=== PATIENT | female | born 1990 | race Caucasian/White ===

== ENCOUNTER 2019-09-19 19:52 | Emergency (ER) | payer OTHER ==
[~2019-09-19] VITALS: Ht 167.6 cm; Wt 65.9 kg
[2019-09-19] MEDS ORDERED: birth control (20:10)
[2019-09-19] MEDS ORDERED: NS 1,000 ML IV ONE (21:00)
[2019-09-19] MEDS ORDERED: ONDANSETRON 4MG/2ML VIAL IV ONE (21:00)
[2019-09-19] MEDS ORDERED: MORPHINE 4 MG/ML 1ML VIAL/SYRINGE (J2270) IV ONE (21:00)
[2019-09-19 21:08] LABS: MEAN CORPUSCULAR HEMOGLOBIN 29.7 pg (27.0-33.0); MEAN CORPUSCULAR HGB CONC 33.3 g/dl (32.0-36.5); MEAN CORPUSCULAR VOLUME 89.2 fl (80.0-96.0); PLATELET COUNT, AUTOMATED 325 10^3/uL (150-450); RED BLOOD COUNT 4.71 10^6/uL (4.00-5.40); WHITE BLOOD COUNT 12.2 10^3/uL (4.0-10.0)
[2019-09-19] MEDS ORDERED: ISOVUE-370 76% 100ML VIAL As Ordered ONE (21:13)
[2019-09-19 21:44] LABS: ALBUMIN 3.9 GM/DL (3.2-5.2); ALT/SGPT 25 U/L (12-78); BILIRUBIN,DIRECT < 0.1 MG/DL (0.0-0.2); BILIRUBIN,TOTAL 0.4 MG/DL (0.2-1.0); LIPASE 166 U/L (73-393); TOTAL PROTEIN 7.7 GM/DL (6.4-8.2)
[2019-09-19 21:47] LABS: ATYPICAL LYMPH 5 % (0-5); BASOPHILS 1 % (0-1); EOSINOPHILS 1 % (0-3); LYMPHOCYTES 35 % (16-44); MONOCYTES 7 % (0-5); NEUTROPHILS 51 % (28-66); PLATELET ESTIMATE NORMAL (NORMAL)
--- NOTE | 2019-09-19 21:49 | REPVR ---
PROCEDURE INFORMATION: Exam: CT Abdomen And Pelvis With Contrast Exam date and time: 09/19/2019 9:22 PM Age: 28 years old Clinical indication: Abdominal pain; Localized; Lower; Additional info: Lower abd pain, very tender, nv TECHNIQUE: Imaging protocol: Computed tomography of the abdomen and pelvis with intravenous contrast. Radiation optimization: All CT scans at this facility use at least one of these dose optimization techniques: automated exposure control; mA and/or kV adjustment per patient size (includes targeted exams where dose is matched to clinical indication); or iterative reconstruction. Contrast material: ISOVUE 370; Contrast volume: 100 ml; Contrast route: IV; COMPARISON: No relevant prior studies available. FINDINGS: Liver: Normal. No mass. Gallbladder and bile ducts: Normal. No calcified stones. No ductal dilation. Pancreas: Normal. No ductal dilation. Spleen: Normal. No splenomegaly. Adrenals: Normal. No mass. Kidneys and ureters: Normal. No hydronephrosis. Stomach and bowel: Mild intraluminal fluid and mucosal enhancement are noted in the small bowel. No wall thickening or other inflammatory changes. No bowel obstruction. The stomach and colon are unremarkable. Appendix: No evidence of appendicitis. Intraperitoneal space: Unremarkable. No free air. No significant fluid collection. Vasculature: Unremarkable. No abdominal aortic aneurysm. Lymph nodes: Unremarkable. No enlarged lymph nodes. Bladder: Unremarkable as visualized. Reproductive: Unremarkable as visualized. Bones/joints: Unremarkable. No acute fracture. Soft tissues: Unremarkable. IMPRESSION: 1. Mild mucosal enhancement and intraluminal fluid in the small bowel is nonspecific but may indicate a viral enteritis. No obstruction. 2. Normal appendix. Electronically signed by: Sandor Sandoval On 09/19/2019 21:49:00 PM
[2019-09-19] MEDS ORDERED: DICY1CAP8 PO (22:25)
[2019-09-19] MEDS ORDERED: ONDA4TAB6 PO (22:25)
[2019-09-19 22:38] VITALS: BP 130/67
== END 2019-09-19 22:40 | disposition home or self-care (01) ==
LOC: M ED 19:52
DX: R10.30 Lower abdominal pain, unspecified (principal); K52.9 Noninfective gastroenteritis and colitis, unspecified; F17.200 Nicotine dependence, unspecified, uncomplicated; Z79.82 Long term (current) use of aspirin; Z79.3 Long term (current) use of hormonal contraceptives; Z88.0 Allergy status to penicillin
CPT/HCPCS: 74177; 80047; 80076; 81001; 83690; 84702; 85025; 96361; 96374; 96375; 99284; J2270; J2405; Q9967

== ENCOUNTER 2019-10-07 19:02 | Emergency (ER) | payer OTHER ==
[~2019-10-07] VITALS: Ht 167.6 cm; Wt 66.4 kg
[~2019-10-07 19:02] MED LIST: DICY1CAP8 PO; ONDA4TAB6 PO; birth control
[2019-10-07] MEDS ORDERED: NS 1,000 ML IV SCH (19:23)
[2019-10-07] MEDS ORDERED: ASPIRIN 81 MG CHEW TABLET PO ONE (19:30)
[2019-10-07 19:51] LABS: BASO # 0.1 10^3/uL (0.0-0.2); BASO % 0.5 % (0.0-1.0); EOS # 0.2 10^3/uL (0.0-0.5); EOS % 2.3 % (0.0-3.0); HEMATOCRIT 39.8 % (36.0-47.0); HEMOGLOBIN 13.2 g/dl (12.0-15.5); LYMPH # 3.8 10^3/uL (1.5-5.0); LYMPH % 38.1 % (24.0-44.0); MEAN CORPUSCULAR HEMOGLOBIN 29.8 pg (27.0-33.0); MEAN CORPUSCULAR HGB CONC 33.2 g/dl (32.0-36.5); MEAN CORPUSCULAR VOLUME 89.8 fl (80.0-96.0); MONO # 0.8 10^3/uL (0.0-0.8); MONO % 8.3 % (0.0-5.0); NEUTROPHILS % 50.6 % (36.0-66.0); PLATELET COUNT, AUTOMATED 251 10^3/uL (150-450); RED BLOOD COUNT 4.43 10^6/uL (4.00-5.40); WHITE BLOOD COUNT 9.9 10^3/uL (4.0-10.0)
[2019-10-07 20:02] LABS: INR 1.07; PROTHROMBIN TIME 13.6 SECONDS (11.8-14.0)
[2019-10-07 20:17] LABS: ALBUMIN 3.7 GM/DL (3.2-5.2); ALT/SGPT 28 U/L (12-78); BILIRUBIN,DIRECT 0.1 MG/DL (0.0-0.2); BILIRUBIN,TOTAL 0.3 MG/DL (0.2-1.0); BLOOD UREA NITROGEN 13 MG/DL (7-18); CALCIUM LEVEL 8.9 MG/DL (8.5-10.1); CARBON DIOXIDE LEVEL 26 MEQ/L (21-32); CHLORIDE LEVEL 106 MEQ/L (98-107); CK-MB VALUE MASS < 1.0 NG/ML (<3.6); CPK CREATINE PHOSPHOKINASE 69 U/L (26-192); CREATININE FOR GFR 0.98 MG/DL (0.55-1.30); ETHYL ALCOHOL (ETHANOL) < 0.003 % (0.000-0.010); GLOMERULAR FILTRATION RATE > 60.0 (>60); GLUCOSE, FASTING 89 MG/DL (70-100); LIPASE 111 U/L (73-393); MB/CK RELATIVE INDEX 1.45 (< OR =4); POTASSIUM SERUM 4.1 MEQ/L (3.5-5.1); SODIUM LEVEL 140 MEQ/L (136-145); TOTAL PROTEIN 7.2 GM/DL (6.4-8.2); TROPONIN I < 0.02 NG/ML (< 0.10)
[2019-10-07 20:24] LABS: AMPHETAMINES LEVEL URINE NEGATIVE (NEGATIVE); BARBITURATES URINE NEGATIVE (NEGATIVE); BENZODIAZEPINES URINE NEGATIVE (NEGATIVE); CANNABINOIDS URINE NEGATIVE (NEGATIVE); COCAINE METABOLITE URINE NEGATIVE (NEGATIVE); METHADONE URINE NEGATIVE (NEGATIVE); OPIATES URINE NEGATIVE (NEGATIVE); PHENCYCLIDINE URINE NEGATIVE (NEGATIVE)
[2019-10-07 20:28] LABS: HCG, SERUM QUALITATIVE NEGATIVE (NEGATIVE)
[2019-10-07 20:30] VITALS: BP 120/58
[2019-10-07] MEDS ORDERED: ASPI81TA85 PO (20:32)
--- NOTE | 2019-10-07 20:47 | ECGEPIP ---
[facility] - ED Test Date: 2019-10-07 Pat Name: ENRRIQUE BARGER Department: Room: - Gender: Female Director Financial Services: KENNEDY : 1990 Requested By: ALLIE RAE Order Number: [id number] Reading MD: Shadi Cabral Measurements Intervals [place] Rate: 67 P: 52 [place]: 201 QRS: 85 QRSD: 100 T: 59 QT: 376 QTc: 399 Interpretive Statements SINUS RHYTHM WITH OCCASIONAL SUPRAVENTRICULAR PREMATURE COMPLEXES NSTTW ABNORMALITIES NO PRIORS FOR COMPARISON Electronically Signed on 10-07-2019 20:47:42 EDT by Shadi Cabral
== END 2019-10-07 20:44 | disposition home or self-care (01) ==
LOC: M ED 19:02
DX: R07.89 Other chest pain (principal); Z72.0 Tobacco use; Z79.82 Long term (current) use of aspirin; Z79.3 Long term (current) use of hormonal contraceptives; Z88.0 Allergy status to penicillin
CPT/HCPCS: 80048; 80076; 80307; 82550; 82553; 83690; 84484; 84703; 85025; 85610; 93005; 93041; 94760; 96360; 99285; G0480

== ENCOUNTER 2020-03-26 02:24 | Emergency (ER) | payer OTHER ==
[~2020-03-26 02:24] MED LIST changes: +ASPI81TA86 PO
[2020-03-26 02:59] LABS: BASO # 0.1 10^3/uL (0.0-0.2); BASO % 0.5 % (0.0-1.0); EOS # 0.2 10^3/uL (0.0-0.5); EOS % 2.2 % (0.0-3.0); HEMATOCRIT 40.5 % (36.0-47.0); HEMOGLOBIN 13.1 g/dl (12.0-15.5); LYMPH # 3.2 10^3/uL (1.5-5.0); LYMPH % 34.4 % (24.0-44.0); MEAN CORPUSCULAR HGB CONC 32.3 g/dl (32.0-36.5); MEAN CORPUSCULAR VOLUME 89.6 fl (80.0-96.0); MONO # 0.7 10^3/uL (0.0-0.8); MONO % 7.5 % (0.0-5.0); NEUTROPHILS # 5.1 10^3/uL (1.5-8.5); PLATELET COUNT, AUTOMATED 240 10^3/uL (150-450); RED BLOOD COUNT 4.52 10^6/uL (4.00-5.40); WHITE BLOOD COUNT 9.4 10^3/uL (4.0-10.0)
[2020-03-26] MEDS ORDERED: NS 1,000 ML IV ONE (03:00)
[2020-03-26 03:09] LABS: HCG, SERUM QUALITATIVE NEGATIVE (NEGATIVE)
[2020-03-26 03:23] LABS: ACETAMINOPHEN LEVEL < 2.0 UG/ML (10.0-30.0); ALBUMIN 3.6 GM/DL (3.2-5.2); ALT/SGPT 20 U/L (12-78); BILIRUBIN,DIRECT < 0.1 MG/DL (0.0-0.2); BLOOD UREA NITROGEN 16 MG/DL (7-18); CALCIUM LEVEL 8.1 MG/DL (8.5-10.1); CARBON DIOXIDE LEVEL 22 MEQ/L (21-32); CHLORIDE LEVEL 112 MEQ/L (98-107); CK-MB VALUE MASS < 1.0 NG/ML (<3.6); CPK CREATINE PHOSPHOKINASE 94 U/L (26-192); CREATININE FOR GFR 0.88 MG/DL (0.55-1.30); ETHYL ALCOHOL (ETHANOL) 0.153 % (0.000-0.010); GLOMERULAR FILTRATION RATE > 60.0 (>60); GLUCOSE, FASTING 75 MG/DL (70-100); MB/CK RELATIVE INDEX 1.06 (< OR =4); POTASSIUM SERUM 3.5 MEQ/L (3.5-5.1); SODIUM LEVEL 142 MEQ/L (136-145); TOTAL PROTEIN 6.8 GM/DL (6.4-8.2); TROPONIN I < 0.02 NG/ML (< 0.10)
--- NOTE | 2020-03-26 03:42 | REPVR ---
PROCEDURE INFORMATION: Exam: CT Head Without Contrast Exam date and time: 03/26/2020 2:51 AM Age: 29 years old Clinical indication: Other: Seizure; Additional info: Altered mental status TECHNIQUE: Imaging protocol: Computed tomography of the head without contrast. Radiation optimization: All CT scans at this facility use at least one of these dose optimization techniques: automated exposure control; mA and/or kV adjustment per patient size (includes targeted exams where dose is matched to clinical indication); or iterative reconstruction. COMPARISON: No relevant prior studies available. FINDINGS: Brain: Normal. No hemorrhage. Unremarkable white matter. No mass effect. Cerebral ventricles: No ventriculomegaly. Bones/joints: Unremarkable. No acute fracture. Paranasal sinuses: Visualized sinuses are unremarkable. No fluid levels. Mastoid air cells: Visualized mastoid air cells are well aerated. Soft tissues: Unremarkable. IMPRESSION: Negative noncontrast head CT. Electronically signed by: Rishi Doll On 03/26/2020 03:41:26 AM
--- NOTE | 2020-03-26 03:42 | REPVR ---
PROCEDURE INFORMATION: Exam: XR Chest, 1 View Exam date and time: 03/26/2020 3:29 AM Age: 29 years old Clinical indication: Other: Altered mental status TECHNIQUE: Imaging protocol: XR of the chest Views: 1 view. COMPARISON: No relevant prior studies available. FINDINGS: Lungs: Unremarkable. No consolidation. Pleural space: Unremarkable. No pleural effusion. No pneumothorax. Heart/Mediastinum: Unremarkable. No cardiomegaly. Bones/joints: Unremarkable. IMPRESSION: Negative chest. Electronically signed by: Rishi Doll On 03/26/2020 03:41:53 AM
[2020-03-26 05:16] LABS: BILIRUBIN,TOTAL < 0.1 MG/DL (0.2-1.0)
[2020-03-26 05:26] LABS: AMPHETAMINES LEVEL URINE NEGATIVE (NEGATIVE); BARBITURATES URINE NEGATIVE (NEGATIVE); BENZODIAZEPINES URINE NEGATIVE (NEGATIVE); CANNABINOIDS URINE NEGATIVE (NEGATIVE); COCAINE METABOLITE URINE NEGATIVE (NEGATIVE); METHADONE URINE NEGATIVE (NEGATIVE); OPIATES URINE NEGATIVE (NEGATIVE); PHENCYCLIDINE URINE NEGATIVE (NEGATIVE)
[2020-03-26] MEDS ORDERED: METOCLOPRAMIDE INJ 10MG/2ML VIAL (J2765 PER 1) IV ONE (06:30)
[2020-03-26] MEDS ORDERED: KETOROLAC 30 MG/ML 1ML VIAL IV ONE (06:30)
--- NOTE | 2020-03-26 10:05 | ECGEPIP ---
[facility] - ED Test Date: 2020-03-26 Pat Name: ENRRIQUE BARGER Department: Room: - Gender: Female Tank Hoop Bender: : 1990 Requested By: KERI Castelan Order Number: [id number] Reading MD: Malu Preston Measurements Intervals [place] Rate: 77 P: 59 [place]: 232 QRS: 86 QRSD: 98 T: 31 QT: 386 QTc: 438 Interpretive Statements SINUS RHYTHM WITH FIRST DEGREE AV BLOCK WITH OCCASIONAL SUPRAVENTRICULAR PREMATURE COMPLEXES LOW QRS VOLTAGE IN PRECORDIAL LEADS NSTTW abnormalities Electronically Signed on 03-26-2020 10:05:04 EST by Malu Preston
[2020-03-26 10:30] VITALS: BP 97/55
== END 2020-03-26 10:57 | disposition home or self-care (01) ==
LOC: M ED 02:24
DX: F10.129 Alcohol abuse with intoxication, unspecified (principal); I44.0 Atrioventricular block, first degree; Z79.82 Long term (current) use of aspirin; Z79.3 Long term (current) use of hormonal contraceptives; Z88.0 Allergy status to penicillin
CPT/HCPCS: 70450; 71045; 80048; 80076; 80307; 82550; 82553; 83605; 84443; 84484; 84703; 85025; 93005; 93041; 94760; 96361; 96374; 96375; 99285; G0480; J1885; J2765

== ENCOUNTER 2020-06-01 20:24 | Emergency (ER) | payer OTHER ==
[~2020-06-01] VITALS: Ht 167.6 cm; Wt 70.0 kg
--- OUTSIDE RECORDS SUMMARY | 2020-06-01 20:29 | CCD ---
Author Author [facility] Organization [facility] Address Unknown Phone Unavailable Care Team Providers Care Health Outreach Worker Name Role Phone ANTECOL, Natalya FRANCISCO MD Unavailable Unavailable ANTECOL, Natalya FRANCISCO MD Unavailable Unavailable ANTECOL, Natalya FRANCISCO MD Unavailable Unavailable ANTECOL, Natalya FRANCISCO MD Unavailable Unavailable ANTECOL, Natalya FRANCISCO MD Unavailable Unavailable ANTECOL, Natalya FRANCISCO MD Unavailable Unavailable ANTECOL, Natalya FRANCISCO MD Unavailable Unavailable ANTECOL, Natalya FRANCISCO MD Unavailable Unavailable ANTECOL, Natalya FRANCISCO MD Unavailable Unavailable ANTECOL, Natalya FRANCISCO MD Unavailable Unavailable ANTECOL, Natalya FRANCISCO MD Unavailable Unavailable ANTECOL, Natalya FRANCISCO MD Unavailable Unavailable ANTECOL, Natalya FRANCISCO MD Unavailable Unavailable ANTECOL, Natalya FRANCISCO MD Unavailable Unavailable ANTECOL, Natalya FRANCISCO MD Unavailable Unavailable ANTECOL, Natalya FRANCISCO MD Unavailable Unavailable ANTECOL, Natalya FRANCISCO MD Unavailable Unavailable ANTECOL, Natalya FRANCISCO MD Unavailable Unavailable ANTECOL, Natalya FRANCISCO MD Unavailable Unavailable ANTECOL, Natalya FRANCISCO MD Unavailable Unavailable ANTECOL, Natalya FRANCISCO MD Unavailable Unavailable ANTECOL, Natalya FRANCISCO MD Unavailable Unavailable ANTECOL, Natalya FRANCISCO MD Unavailable Unavailable ANTECOL, Natalya FRANCISCO MD Unavailable Unavailable ANTECOL, Natalya FRANCISCO MD Unavailable Unavailable ANTECOL, Natalya FRANCISCO MD Unavailable Unavailable ANTECOL, Natalya FRANCISCO MD Unavailable Unavailable ANTECOL, Natalya FRANCISCO MD Unavailable Unavailable ANTECOL, Natalya FRANCISCO MD Unavailable Unavailable ANTECOL, Natalya FRANCISCO MD Unavailable Unavailable ANTECOL, Natalya FRANCISCO MD Unavailable Unavailable ANTECOL, Natalya FRANCISCO MD Unavailable Unavailable ANTECOL, Natalya FRANCISCO MD Unavailable Unavailable ANTECOL, Natalya FRANCISCO MD Unavailable Unavailable ANTECOL, Natalya FRANCISCO MD Unavailable Unavailable ANTECOL, Natalya FRANCISCO MD Unavailable Unavailable ANTECOL, Natalya FRANCISCO MD Unavailable Unavailable ANTECOL, Natalya FRANCISCO MD Unavailable Unavailable ANTECOL, Natalya FRANCISCO MD Unavailable Unavailable ANTECOL, Natalya FRANCISCO MD Unavailable Unavailable ANTECOL, Natalya FRANCISCO MD Unavailable Unavailable ANTECOL, Natalya FRANCISCO MD Unavailable Unavailable ANTECOL, Natalya FRANCISCO MD Unavailable Unavailable ANTECOL, Natalya FRANCISCO MD Unavailable Unavailable ANTECOL, Natalya FRANCISCO MD Unavailable Unavailable ANTECOL, Natalya FRANCISCO MD Unavailable Unavailable ANTECOL, Natalya FRANCISCO MD Unavailable Unavailable ANTECOL, Natalya FRANCISCO MD Unavailable Unavailable ANTECOL, Natalya FRANCISCO MD Unavailable Unavailable ANTECOL, Natalya FRANCISCO MD Unavailable Unavailable ANTECOL, Natalya FRANCISCO MD Unavailable Unavailable ANTECOL, Natalya FRANCISCO MD Unavailable Unavailable ANTECOL, Natalya FRANCISCO MD Unavailable Unavailable ANTECOL, Natalya FRANCISCO MD Unavailable Unavailable ANTECOL, Naatlya FRANCISCO MD Unavailable Unavailable Re-disclosure Warning The records that you are about to access may contain information from federally-assisted alcohol or drug abuse programs. If such information is present, then the following federally mandated warning applies: This information has been disclosed to you from records protected by federal confidentiality rules (42 CFR part 2). The federal rules prohibit you from making any further disclosure of this information unless further disclosure is expressly permitted by the written consent of the person to whom it pertains or as otherwise permitted by 42 CFR part 2. A general authorization for the release of medical or other information is NOT sufficient for this purpose. The Federal rules restrict any use of the information to criminally investigate or prosecute any alcohol or drug abuse patient.The records that you are about to access may contain highly sensitive health information, the redisclosure of which is protected by Article 27-F of the [facility] Public Health law. If you continue you may have access to information: Regarding HIV / AIDS; Provided by facilities licensed or operated by the [facility] Office of Mental Health; or Provided by the [facility] Office for People With Developmental Disabilities. If such information is present, then the following [facility] mandated warning applies: This information has been disclosed to you from confidential records which are protected by state law. State law prohibits you from making any further disclosure of this information without the specific written consent of the person to whom it pertains, or as otherwise permitted by law. Any unauthorized further disclosure in violation of state law may result in a fine or correction sentence or both. A general authorization for the release of medical or other information is NOT sufficient authorization for further disc losure. Encounters Encounter Providers Location Date Indications Data Source(s ) Outpatient Attender: NOLAN LEIVA MD Main Office 10/27/2019 03:30:00 PM EDT [facility] ([facility]) Medications Medication Brand Name Start Date Product Form Dose Route Admi nistrative Instructions Pharmacy Instructions Status Indications Reaction Description Data Source(s) Levothyroxine Sodium 0.025 MG Oral Tablet [Synthroid] Synthr oid 10/26/2019 12:00:00 AM EDT ORAL active M [facility] ([facility]) Microgestin /20 Microgestin 20 10/26/2019 12:00:00 AM EDT ORAL active [facility] ([facility]) POLYETHYLENE GLYCOL 3350 142 MG/ML Oral Solution [Miralax] M iralax 10/26/2019 12:00:00 AM EDT active M [facility] ([facility]) Insurance Providers Payer name Policy type / Coverage type Policy ID Covered republican ID Covered republican's relationship to reyes Policy Reyes Plan Information [facility] [id number] [facility] [id number] Problems, Conditions, and Diagnoses Code Display Name Description Problem Type Effective Dates Data Source(s) 716030761 Counseling about tobacco use Counseling about tobacco use Problem 10/27/2019 12:00:00 AM EDT [facility] ([facility]) [id number] Tobacco user Tobacco user Problem 10/27/2019 12:00:00 A M EDT [facility] ([facility]) [id number] Electrocardiogram abnormal Electrocardiogram abnormal Problem 10/27/2019 12:00:00 AM EDT [facility] ([facility]) [id number] Supraventricular premature beats Supraventricula r premature beats Problem 10/27/2019 12:00:00 AM EDT [facility] ([facility]) Surgeries/Procedures Procedure Description Date Indications Data Source(s) ECHO TTHRC R-T 2D W/WOM-MODE COMPL SPEC&COLR DOP 12/27 12:00:00 AM EDT [facility] ([facility]) XTRNL ECG < 48 HR RECORDING 10/28/2019 12:00:00 AM EDT [facility] ([facility]) XTRNL ECG CONTINUOUS RHYTHM PHYS REVIEW&INTERPJ 2019 12:00:00 AM EDT [facility] ([facility]) ECG ROUTINE ECG W/LEAST 12 LDS W/I&R 10/27/2019 12:00: 00 AM EDT [facility] ([facility]) Results ID Date Data Source [id number] 10/06/2019 04:29:00 PM EDT [facility] ([facility]) Name Value Range Interpretation Code Description Data Velia rce(s) Supporting Document(s) White Blood Count 8.10 [facility] ([facility]) Red Blood Count 4.69 [facility] Platelets 260 [facility] Hematocrit 91.2 [facility] ([facility]) Hemoglobin 42.8 [facility] ([facility]) ID Date Data Source [id number] 10/06/2019 04:29:00 PM EDT [facility] ([facility]) Name Value Range Interpretation Code Description Data Velia rce(s) Supporting Document(s) HDL 50 40-92 [facility] Cholesterol in LDL [Mass/volume] in Serum or Plasma by calculation 11 3.0 [facility] ([facility]) Cholesterol 186 0-200 [facility] ([facility]) Triglycerides 82 40-200 [facility] ([facility]) Chol/HDL Ratio 3.72 [facility] ([facility]) ID Date Data Source [id number] 10/06/2019 04:29:00 PM EDT [facility] ([facility]) Name Value Range Interpretation Code Description Data Velia rce(s) Supporting Document(s) Carbon dioxide, total [Moles/volume] in Serum or Plasma 26.0 [facility] ([facility]) Alanine aminotransferase [Enzymatic activity/volume] in Serum or Pl asma 31 [facility] ([facility]) Albumin [Mass/volume] in Serum or Plasma 4.0 [facility] ([facility]) Calcium [Mass/volume] in Serum or Plasma 9.3 [facility] ([facility]) Potassium [Moles/volume] in Serum or Plasma 4.10 [facility] ([facility]) Alkaline phosphatase [Enzymatic activity/volume] in Serum or Plasma 7 4 [facility] ([facility]) Chloride [Moles/volume] in Serum or Plasma 102 [facility] ([facility]) Urea nitrogen [Mass/volume] in Serum or Plasma 15 [facility] ([facility]) Aspartate aminotransferase [Enzymatic activity/volume] in Serum or Plasma 17 [facility] ([facility]) Sodium 140 [facility] ([facility]) Protein [Mass/volume] in Serum or Plasma 7.2 [facility] ([facility]) Creatinine For GFR 1.06 [facility]) Glucose 95 70-105 [facility] ([facility]) ID Date Data Source [id number] 10/06/2019 04:29:00 PM EDT [facility] ([facility]) Name Value Range Interpretation Code Description Data Velia rce(s) Supporting Document(s) Thyroid Stimulating Hormone 6.000 ME [facility] ([facility]) Magnesium Level 2.0 [facility] ([facility]) Free T4 1.21 [facility] ([facility]) Procedure Vital Signs ID Date Data Source UNK Name Value Range Interpretation Code Description Data Source(s) Diastolic blood pressure--sitting 51 mm[Hg] 51 mm[Hg] [facility] ([facility]) [place] adult cuff, [place] Systolic blood pressure--sitting 86 mm[Hg] 86 mm[Hg] [facility] ([facility]) [employer] adult cuff, [place] Heart rate 67 /min 67 /min [facility]) Body mass index (BMI) [Ratio] 24.6 kg/m2 24.6 k g/m2 [facility] ([facility]) Body height 65 [in_i] 65 [in_i] [facility] ([facility]) 5'5" Body weight 148.00 [lb_av] 148.00 [lb_av] [facility] T ([facility])
[2020-06-01 22:15] VITALS: BP 114/67
--- OUTSIDE RECORDS SUMMARY | 2020-06-01 22:19 | CCD ---
Demographics Address [id number] [place] [address] Preferred Language Welsh Marital Status Jewish Affiliation NONE Race White Ethnic Group Not or Author Author [facility] Organization [facility] Address Unknown Phone Unavailable Care Team Providers Care Costuming Supervisor Name Role Phone ANTECOL, Natalya FRANCISCO MD [...] Natalya FRANCISCO MD Unavailable Unavailable ANTECOL, Natalya FRANCSICO MD Unavailable Unavailable ANTECOL, Natalya FRANCISCO MD [...] Unavailable ANTECOL, Natalya FRANCISCO MD Unavailable Unavailable Re-disclosure Warning The [...] is protected by Article 27-F of the [facility] Public Health law. If you continue you may have access to information: Regarding HIV / AIDS; Provided by facilities licensed or operated by the [facility] Office of Mental Health; or Provided by the [facility] Office for People With Developmental Disabilities. If such information is present, then the following [facility] mandated warning applies: This information has been [...] law may result in a fine or assisted sentence or both. A general authorization for the release of medical or other information is NOT sufficient authorization for further disc losure. Encounters Encounter Providers Location Date Indications Data Source(s ) Outpatient Attender: NOLAN LEIVA MD Main Office 10/27/2019 03:30:00 PM EDT [facility] ([facility]) Medications Medication Brand Name Start Date Product Form Dose Route Admi nistrative Instructions Pharmacy Instructions Status Indications Reaction Description Data Source(s) Levothyroxine Sodium 0.025 MG Oral Tablet [Synthroid] Synthr oid 10/26/2019 12:00:00 AM EDT ORAL active M [facility]ENT ([facility]) Microgestin /20 Microgestin 20 10/26/2019 12:00:00 AM EDT ORAL active [facility] ([facility]) POLYETHYLENE GLYCOL 3350 142 MG/ML Oral Solution [Miralax] M iralax 10/26/2019 12:00:00 AM EDT active M [facility] ([facility]) Insurance Providers Payer name Policy type / Coverage type Policy ID Covered libertarian ID Covered libertarian's relationship to reyes Policy Reyes Plan Information [facility] [id number] [facility] [id number] Problems, Conditions, and Diagnoses Code Display Name Description Problem Type Effective Dates Data Source(s) [id number] Counseling about tobacco use Counseling about tobacco use Problem 10/27/2019 12:00:00 AM EDT [facility] ([facility]) [id number] Tobacco user Tobacco user Problem 10/27/2019 12:00:00 A M EDT [facility] ([facility]) [id number] Electrocardiogram abnormal Electrocardiogram abnormal Problem 10/27/2019 12:00:00 AM EDT [facility] ([facility]) [id number] Supraventricular premature beats Supraventricula r premature beats Problem 10/27/2019 12:00:00 AM EDT [facility] ([facility]) Surgeries/Procedures Procedure Description Date Indications Data Source(s) ECHO TTHRC R-T 2D W/WOM-MODE COMPL SPEC&COLR DOP 12/27 12:00:00 AM EDT [facility] ([facility]) XTRNL ECG < 48 HR RECORDING 10/28/2019 12:00:00 AM EDT [facility] ([facility]) XTRNL ECG CONTINUOUS RHYTHM PHYS REVIEW&INTERPJ 2019 12:00:00 AM EDT [facility] ([facility]) ECG ROUTINE ECG W/LEAST 12 LDS W/I&R 10/27/2019 12:00: 00 AM EDT [facility] ([facility]) Results ID Date Data Source [id number] 10/06/2019 04:29:00 PM EDT [facility] ([facility]) Name Value Range Interpretation Code Description Data Velia rce(s) Supporting Document(s) White Blood Count 8.10 [facility] ([facility]) Red Blood Count 4.69 [facility] ([facility] Platelets 260 [facility] Hematocrit 91.2 [facility] ([facility]) Hemoglobin 42.8 [facility] ([facility]) ID Date Data Source [id number] 10/06/2019 04:29:00 PM EDT [facility] ([facility]) Name Value Range Interpretation Code Description Data Velia rce(s) Supporting Document(s) HDL 50 40-92 [facility] ([facility] Cholesterol in LDL [Mass/volume] in Serum or Plasma by calculation 11 3.0 [facility] ([facility]) Cholesterol 186 0-200 [facility] ([facility]) Triglycerides 82 40-200 [facility] ([facility]) Chol/HDL Ratio 3.72 [facility] ([facility]) ID Date Data Source [id number] 10/06/2019 04:29:00 PM EDT [facility] ([facility]) Name Value Range Interpretation Code Description Data Velia rce(s) Supporting Document(s) Carbon dioxide, total [Moles/volume] in Serum or Plasma 26.0 [facility] ([facility]) Alanine aminotransferase [Enzymatic activity/volume] in Serum or Pl asma 31 [facility] ([facility]) Albumin [Mass/volume] in Serum or Plasma 4.0 [facility] ([facility]) Calcium [Mass/volume] in Serum or Plasma 9.3 [facility] ([facility]) Potassium [Moles/volume] in Serum or Plasma 4.10 [facility] ([facility]) Alkaline phosphatase [Enzymatic activity/volume] in Serum or Plasma 7 4 [facility] ([facility]) Chloride [Moles/volume] in Serum or Plasma 102 [facility] ([facility]) Urea nitrogen [Mass/volume] in Serum or Plasma 15 [facility] ([facility]) Aspartate aminotransferase [Enzymatic activity/volume] in Serum or Plasma 17 [facility] ([facility]) Sodium 140 [facility] ([facility]) Protein [Mass/volume] in Serum or Plasma 7.2 [facility] ([facility]) Creatinine For GFR 1.06 [facility]) Glucose 95 70-105 [facility] ([facility]) ID Date Data Source [id number] 10/06/2019 04:29:00 PM EDT [facility] ([facility]) Name Value Range Interpretation Code Description Data Velia rce(s) Supporting Document(s) Thyroid Stimulating Hormone 6.000 ME DENT ([facility]) Magnesium Level 2.0 [facility] ([facility]) Free T4 1.21 [facility] ([facility]) Procedure Vital Signs ID Date Data Source UNK Name Value Range Interpretation Code Description Data Source(s) Diastolic blood pressure--sitting 51 mm[Hg] 51 mm[Hg] [facility] ([facility]) [employer] adult cuff, [place] Systolic blood pressure--sitting 86 mm[Hg] 86 mm[Hg] [facility] ([facility]) [employer] adult cuff, [place] Heart rate 67 /min 67 /min [facility] ([facility]) Body mass index (BMI) [Ratio] 24.6 kg/m2 24.6 k g/m2 [facility] ([facility]) Body height 65 [in_i] 65 [in_i] [facility] ([facility]) 5'5" Body weight 148.00 [lb_av] 148.00 [lb_av] MEDEN T ([facility])
== END 2020-06-01 22:29 | disposition home or self-care (01) ==
LOC: M ED 20:24
DX: F41.0 Panic disorder [episodic paroxysmal anxiety] (principal); F44.5 Conversion disorder with seizures or convulsions; Z79.3 Long term (current) use of hormonal contraceptives; Z88.0 Allergy status to penicillin

== ENCOUNTER 2021-06-15 17:43 | Emergency (ER) | payer OTHER ==
[~2021-06-15] VITALS: Ht 167.6 cm; Wt 84.1 kg
[2021-06-15] MEDS ORDERED: SYNT25TA PO (17:53)
[2021-06-15 18:23] LABS: ABG BASE EXCESS 2.1 (-2.0-2.0); ABG HCO3 26.9 MEQ/L (22.0-26.0); ABG O2 SATURATION 96.5 % (95.0-99.0); ABG PARTIAL PRESSURE CO2 42.4 mmHg (35.0-45.0); ABG PARTIAL PRESSURE O2 82.2 mmHg (75.0-100.0); ABG STANDARD HCO3 26.3 MEQ/L (22.0-26.0); ABG TOTAL CO2 28.2 MEQ/L (22.0-29.0)
[2021-06-15 18:49] LABS: ETHYL ALCOHOL (ETHANOL) < 0.003 % (0.000-0.010)
[2021-06-15 18:51] LABS: HCG, SERUM QUALITATIVE NEGATIVE (NEGATIVE)
[2021-06-15 19:00] VITALS: BP 122/58
== END 2021-06-15 19:23 | disposition home or self-care (01) ==
LOC: M ED 17:43
DX: R43.1 Parosmia (principal); F44.5 Conversion disorder with seizures or convulsions; F41.9 Anxiety disorder, unspecified; F17.200 Nicotine dependence, unspecified, uncomplicated; Z88.0 Allergy status to penicillin

== ENCOUNTER 2022-02-12 20:26 | Emergency (ER) | payer OTHER, SELFPAY ==
[~2022-02-12] VITALS: Ht 167.6 cm; Wt 86.8 kg
[~2022-02-12 20:26] MED LIST changes: +SYNT25TA PO
[2022-02-12 20:34] VITALS: BP 124/58
[2022-02-12] MEDS ORDERED: ACETAMINOPHEN TAB 650MG DOSE (2X325MG) PO ONE (23:05)
[2022-02-12] MEDS ORDERED: ONDANSETRON 4MG ORAL DISINTEGRATING TAB PO ONE (23:05)
[2022-02-12 23:41] LABS: HEMATOCRIT 40.6 % (36.0-47.0); HEMOGLOBIN 13.1 g/dl (12.0-15.5); MEAN CORPUSCULAR HEMOGLOBIN 28.5 pg (27.0-33.0); MEAN CORPUSCULAR HGB CONC 32.3 g/dl (32.0-36.5); MEAN CORPUSCULAR VOLUME 88.3 fl (80.0-96.0); PLATELET COUNT, AUTOMATED 334 10^3/uL (150-450); WHITE BLOOD COUNT 10.3 10^3/uL (4.0-10.0)
[2022-02-13] LABS: HCG, SERUM QUALITATIVE NEGATIVE (NEGATIVE)
[2022-02-13 00:08] LABS: AMPHETAMINES LEVEL URINE NEGATIVE (NEGATIVE); BARBITURATES URINE NEGATIVE (NEGATIVE); BENZODIAZEPINES URINE NEGATIVE (NEGATIVE); CANNABINOIDS URINE NEGATIVE (NEGATIVE); COCAINE METABOLITE URINE NEGATIVE (NEGATIVE); METHADONE URINE NEGATIVE (NEGATIVE); OPIATES URINE NEGATIVE (NEGATIVE); PHENCYCLIDINE URINE NEGATIVE (NEGATIVE)
[2022-02-13 00:13] LABS: RSV AMPLIFICATION NEGATIVE (NEGATIVE)
[2022-02-13 00:18] LABS: ACETAMINOPHEN LEVEL < 2.0 UG/ML (10.0-30.0); ALBUMIN 3.5 GM/DL (3.2-5.2); ALT/SGPT 19 U/L (12-78); BILIRUBIN,DIRECT < 0.1 MG/DL (0.0-0.2); BILIRUBIN,TOTAL 0.2 MG/DL (0.2-1.0); BLOOD UREA NITROGEN 12 MG/DL (7-18); CALCIUM LEVEL 8.4 MG/DL (8.5-10.1); CARBON DIOXIDE LEVEL 29 MEQ/L (21-32); CHLORIDE LEVEL 106 MEQ/L (98-107); ETHYL ALCOHOL (ETHANOL) < 0.003 % (0.000-0.010); GLOMERULAR FILTRATION RATE > 60.0 (>60); GLUCOSE, FASTING 99 MG/DL (70-100); POTASSIUM SERUM 3.5 MEQ/L (3.5-5.1); SALICYLATE LEVEL < 1.7 MG/DL (5.0-30.0); SODIUM LEVEL 142 MEQ/L (136-145)
== END 2022-02-13 02:17 | disposition home or self-care (01) ==
LOC: M ED 20:26
DX: F43.0 Acute stress reaction (principal); F41.9 Anxiety disorder, unspecified; F32.A Depression, unspecified; R56.9 Unspecified convulsions; E66.9 Obesity, unspecified; E03.9 Hypothyroidism, unspecified; Z79.890 Hormone replacement therapy